=== PATIENT | female | born 1995 | race Caucasian/White ===

== ENCOUNTER → 2016-05-31 | Outpatient (CLI) | payer OTHER ==
[~2016-05-31] MED LIST: FRRS300 PO; [UNRECOGNIZED DRUG - CODE] PO
[2016-05-31 12:29] LABS: PREG INTERNAL NEGATIVE QC NEG CLEAR BACKGROUND; PREG INTERNAL POSITIVE QC POS CONTROL LINE
== END | disposition home or self-care (01) ==
LOC: C.LAB1850 11:23
PROVIDERS: ATTEND Obstetrics & Gynecology
DX: N64.52 Nipple discharge (principal)

== ENCOUNTER → 2016-07-11 | Outpatient (CLI) | payer OTHER | END | disposition home or self-care (01) | LOC: C.LABSPEC 17:23 | PROVIDERS: ATTEND Obstetrics & Gynecology | DX: N94.10 Unspecified dyspareunia (principal) ==

== ENCOUNTER → 2016-07-30 | Outpatient (CLI) | payer BC, OTHER ==
[2016-08-02 01:00] LABS: CHLAMYDIA TRACH RNA*** NOT DETECTED (NOT DETECTED); GC (NEIS GONORRHOEAE)RNA** NOT DETECTED (NOT DETECTED)
== END | disposition home or self-care (01) ==
LOC: C.LABSPEC 17:27
PROVIDERS: ATTEND Obstetrics & Gynecology
DX: N94.10 Unspecified dyspareunia (principal); L29.8 Other pruritus; N92.6 Irregular menstruation, unspecified; Z11.3 Encounter for screening for infections with a predominantly sexual mode of transmission

== ENCOUNTER → 2016-07-30 | Outpatient (CLI) | payer BC, OTHER ==
[2016-07-30 18:07] LABS: PREG INTERNAL NEGATIVE QC NEG CLEAR BACKGROUND; PREG INTERNAL POSITIVE QC POS CONTROL LINE
== END | disposition home or self-care (01) ==
LOC: C.LAB1850 16:27
PROVIDERS: ATTEND Obstetrics & Gynecology
DX: N94.10 Unspecified dyspareunia (principal)

== ENCOUNTER → 2016-08-29 | Outpatient (CLI) | payer BC | END | disposition home or self-care (01) | LOC: C.LABPBG 08:27 | PROVIDERS: ATTEND Obstetrics & Gynecology | DX: Z32.01 Encounter for pregnancy test, result positive (principal) ==

== ENCOUNTER → 2016-09-18 | Outpatient (CLI) | payer BC ==
[2016-09-18 16:38] LABS: URINE APPEARANCE CLEAR (CLEAR); URINE BILIRUBIN NEG (NEG); URINE COLOR YELLOW; URINE NITRITE NEG (NEG); URINE SPECIFIC GRAVITY 1.019 (1.000-1.030); UROBILINOGEN NEG (NEG)
[2016-09-18 16:44] LABS: MANUAL MICROSCOPIC REQUIRED? NO; REVIEW REQ? NO
== END | disposition home or self-care (01) ==
LOC: C.LABSPEC 16:22
PROVIDERS: ATTEND Obstetrics & Gynecology
DX: O34.219 Maternal care for unspecified type scar from previous cesarean delivery (principal)

== ENCOUNTER → 2016-09-23 | Outpatient (CLI) | payer BC ==
[2016-09-23 15:57] LABS: BASO % 0.2 %; BASO ABS # 0.02 K/uL (0-0.2); COMPLETE YES; EOS % 2.2 %; IG% 0.4 %; LYMPH % 27.5 %; LYMPH ABS # 2.46 K/uL (1.2-3.4); MEAN CELL VOLUME 81.1 fL (80-100); MEAN CORPUSCULAR HEMOGLOBIN 28.2 pg (25-34); MEAN CORPUSCULAR HGB CONC 34.8 g/dl (32-36); MEAN PLATELET VOLUME 10.8 fL (7.4-10.4); MONO % 7.4 %; NEUT % 62.3 %; PLATELET COUNT 220 K/uL (130-400); RED BLOOD COUNT 4.93 M/uL (4.2-5.4); WHITE BLOOD COUNT 8.94 K/uL (4.8-10.8)
[2016-09-23 16:36] LABS: THYROID STIMULATING HORMONE 1.62 uIu/ml (0.300-4.500)
== END ==
LOC: C.LAB1850 14:49
PROVIDERS: ATTEND Obstetrics & Gynecology
DX: O24.419 Gestational diabetes mellitus in pregnancy, unspecified control (principal); O99.281 Endocrine, nutritional and metabolic diseases complicating pregnancy, first trimester

== ENCOUNTER → 2016-09-23 | Outpatient (CLI) | payer BC ==
[2016-09-26 02:49] LABS: CHLAMYDIA TRACH RNA*** NOT DETECTED (NOT DETECTED); GC (NEIS GONORRHOEAE)RNA** NOT DETECTED (NOT DETECTED)
== END ==
LOC: C.LABSPEC 17:37
PROVIDERS: ATTEND Obstetrics & Gynecology
DX: O24.419 Gestational diabetes mellitus in pregnancy, unspecified control (principal)

== ENCOUNTER → 2016-10-21 | Outpatient (CLI) | payer BC, OTHER ==
[2016-10-21 16:22] LABS: THYROID STIMULATING HORMONE 0.431 uIu/ml (0.300-4.500)
== END | disposition home or self-care (01) ==
LOC: C.LAB1850 14:53
PROVIDERS: ATTEND Obstetrics & Gynecology
DX: O99.281 Endocrine, nutritional and metabolic diseases complicating pregnancy, first trimester (principal)

== ENCOUNTER → 2016-11-18 | Outpatient (CLI) | payer BC, OTHER ==
[2016-11-18 15:37] LABS: THYROID STIMULATING HORMONE 1.37 uIu/ml (0.300-4.500)
== END | disposition home or self-care (01) ==
LOC: C.LAB1850 14:15
PROVIDERS: ATTEND Obstetrics & Gynecology
DX: O99.281 Endocrine, nutritional and metabolic diseases complicating pregnancy, first trimester (principal)

== ENCOUNTER → 2017-01-16 | Outpatient (CLI) | payer BC, OTHER ==
[2017-01-16 13:55] LABS: THYROID STIMULATING HORMONE 1.39 uIu/ml (0.300-4.500)
== END ==
LOC: C.LAB1850 12:21
PROVIDERS: ATTEND Obstetrics & Gynecology
DX: O99.282 Endocrine, nutritional and metabolic diseases complicating pregnancy, second trimester (principal)

== ENCOUNTER 2017-02-16 19:26 | Emergency (ER) | payer BC, OTHER ==
[~2017-02-16] VITALS: Ht 152.4 cm; Wt 85.2 kg
[2017-02-16 19:47] VITALS: TEMP 36.8; Ht 152.4 cm; Wt 85.2 kg
[2017-02-16 21:01] VITALS: BP 117/65; PULSE 82; O2SAT 100
--- NOTE | 2017-02-16 23:50 | EMERGENCY ROOM VISIT NOTE ---
History Report prepared by Kerri: Yeimi Cerna Under the Supervision of: Dr. Jeffrey Daugherty M.D. First contact with patient: 20:21 Chief Complaint: ABDOMINAL PAIN Stated Complaint: VERY PAINFUL HERNIA(UMBILICAL) Nursing Triage Summary: Pt complains of pain to umbilicus. Pt has history of umbilical hernia. Pt is 29 week preg. Pt denies any vaginal discharge or bleeding. History of Present Illness The patient is a 21 year old female who presents to the Emergency Room with complaints of intermittent abdominal pain starting yesterday. The patient states that she is 29 weeks and has an umbilical hernia. She states that she has had this since her last . She reports that sometimes it becomes painful to touch. She states that it was worse with movement. She states that yesterday it was the worst it has ever been. She reports that she vomited from the pain. The patient reports that she called OB and they told her to come in. She states that the pain had passed at that time and decided not to. She states that it came back today and made her nauseous. She reports that she called OB again and they told her to come in. She states that the pain stopped and she almost didn't come in, but thought it was best to just get checked out. She notes that she was experiencing Baker Arshad yesterday but otherwise denies any contractions. The patient denies fever, vomiting, and constipation. She states that she had seen a surgeon in between these pregnancies who said they wouldn't operate on it because of her weight. The patient denies urinary symptoms and vaginal bleeding or discharge. She notes that she still feels the baby moving. She denies melena and hematochezia. She notes that she has been having normal bowel movements and has not been doing heavy lifting. Source of History: patient Onset: yesterday Position: abdomen Timing: intermittent Modifying Factors (Worsening): movement Associated Symptoms: + nausea, No fevers, No vomiting, No melena, No hematochezia, No urinary symptoms Note: The patient denies constipation and vaginal bleeding. Review of Systems See HPI for pertinent positives & negatives. A total of 10 systems reviewed and were otherwise negative. Past Medical & Surgical Medical Problems: (1) Delivery by section of full-term (2) Umbilical hernia Family History No pertinent family history Social History Smoking Status: Never Smoker Alcohol Use: none Drug Use: none Marital Status: Housing Status: lives with family Occupation Status: unemployed Current/Historical Medications Scheduled Ferrous Sulfate (Ferrous Sulfate), 325 MG PO BID Levothyroxine Sodium (Levo-T), 125 MCG PO QAM Allergies Coded Allergies: No Known Allergies (Unverified , 04/28/16) Physical Exam Vital Signs Date Time Temp Pulse Resp B/P (MAP) Pulse Ox O2 Delivery O2 Flow Rate FiO2 02/16/17 21:01 82 18 117/65 100 02/16/17 19:47 36.8 75 16 118/76 99 Room Air Physical Exam Constitutional: Vital signs reviewed. Eyes: Pupils are equal round reactive to light. Conjunctiva are noninjected. ENT: Pharynx is clear without erythema or exudate. Mucous membranes are moist. Neck supple without meningeal signs. Respiratory: Clear to auscultation bilaterally. Breath sounds are equal bilaterally. Cardiovascular: Regular rate and rhythm. No rubs or gallops. GI: Soft. Bowel sounds are present. Gravid abdomen consistent with dates. Easily reducible 1 cm umbilical hernia with minimal tenderness. Musculoskeletal: No peripheral edema. Integumentary: No cyanosis. Neurological: The patient is awake and alert. No focal deficits. Psychiatric: Normal affect. Medical Decision & Procedures ED Course 2029: The patient was evaluated in room B3B. A complete history and physical exam was performed. 2039: Upon reevaluation, the patient appeared to have improvement of her symptoms. I discussed tonight's findings with the patient. She verbalized agreement of the treatment plan. The patient was discharged home. Medical Decision This is a 21-year-old female who presents with an umbilical hernia. I did perform a limited focused review of portions of the patient's old chart on the electronic medical record. The patient has had no recent pertinent visits to this hospital. The patient is normotensive. I did evaluate the patient as noted above. The patient has been dealing with an umbilical hernia since her last . She has had 2 episodes of pain since yesterday but currently is pain-free. She does have some mild tenderness over the umbilicus where I do palpate a easily reducible hernia. She denies any other symptoms such as fever or rectal bleeding. She did have vomiting yesterday but that is resolved. She has had no vaginal discharge or contractions or loss of movements. heart rate here was normal. I did briefly mention her case to the on-call surgeon who recommended that she have the hernia repaired once she delivers her baby. The patient was discharged in good condition and will follow up with her doctor. She was given return instructions as outlined below. Medication Reconcilliation Current Medication List: was personally reviewed by me Blood Pressure Screening Patient's blood pressure: Normal blood pressure Blood pressure disposition: Did not require urgent referral Impression Primary Impression: Umbilical hernia Additional Impression: Third trimester Scribe Attestation The scribe's documentation has been prepared under my direct and personally reviewed by me in its entirety. I confirm that the note above accurately reflects all work, treatment, procedures, and medical decision making performed by me. Departure Information Dispostion Home / Self-Care Referrals No Doctor, Assigned (PCP) Forms HOME CARE DOCUMENTATION FORM, IMPORTANT VISIT INFORMATION Patient Instructions My [facility] Additional Instructions You have been examined and treated today on an emergency basis only. This is not a substitute for, or an effort to provide, complete comprehensive medical care. It is impossible to recognize and treat all injuries or illnesses in a single emergency department visit. It is therefore important that you follow up closely with your physician. Call as soon as possible for an appointment. Return for worsening symptoms or if you develop fever, vomiting, rectal bleeding , or any other concerning symptoms. Problem Qualifiers Primary Impression: Umbilical hernia Obstruction and gangrene presence: without obstruction or gangrene Qualified Codes: K42.9 - Umbilical hernia without obstruction or gangrene
== END 2017-02-16 21:02 | disposition home or self-care (01) ==
LOC: C.EDB 19:27
DX: O99.613 Diseases of the digestive system complicating pregnancy, third trimester (principal); K42.9 Umbilical hernia without obstruction or gangrene; Z3A.29 29 weeks gestation of pregnancy; Z79.899 Other long term (current) drug therapy

== ENCOUNTER → 2017-02-18 | Outpatient (CLI) | payer BC ==
[2017-02-18 18:50] LABS: MANUAL MICROSCOPIC REQUIRED? NO; REVIEW REQ? NO; URINE APPEARANCE CLOUDY (CLEAR); URINE BILIRUBIN NEG (NEG); URINE COLOR YELLOW; URINE EPITHELIAL CELL AUTO >30 /lpf (0-5); URINE NITRITE NEG (NEG); URINE PH 5.5 (4.5-7.5); URINE SPECIFIC GRAVITY 1.018 (1.000-1.030); UROBILINOGEN NEG (NEG)
== END | disposition home or self-care (01) ==
LOC: C.LABSPEC 17:53
PROVIDERS: ATTEND Obstetrics & Gynecology
DX: O24.410 Gestational diabetes mellitus in pregnancy, diet controlled (principal)

== ENCOUNTER 2017-03-23 11:01 | Outpatient (CLI) | payer BC ==
[2017-03-23] MEDS ORDERED: ACETAMINOPHEN 325 MG TAB PO PRN (12:00)
== END 2017-03-23 13:25 | disposition home or self-care (01) ==
LOC: C.OPB 11:01 → C.LD 11:01 → C.OPB 13:25
PROVIDERS: ATTEND Obstetrics & Gynecology
DX: O26.893 Other specified pregnancy related conditions, third trimester (principal); R10.9 Unspecified abdominal pain; Z3A.34 34 weeks gestation of pregnancy

== ENCOUNTER → 2017-04-11 | Outpatient (CLI) | payer BC | END | disposition home or self-care (01) | LOC: C.LABSPEC 16:56 | PROVIDERS: ATTEND Obstetrics & Gynecology | DX: Z34.83 Encounter for supervision of other normal pregnancy, third trimester (principal) ==

== ENCOUNTER 2017-04-21 11:09 | Outpatient (CLI) | payer BC | END 2017-04-21 11:55 | disposition home or self-care (01) | LOC: C.LD 11:09 → C.OPB 11:09 → EDSTATUS 04-28 07:30 | PROVIDERS: ATTEND Obstetrics & Gynecology | DX: O26.893 Other specified pregnancy related conditions, third trimester (principal); R10.9 Unspecified abdominal pain; O24.414 Gestational diabetes mellitus in pregnancy, insulin controlled; O99.283 Endocrine, nutritional and metabolic diseases complicating pregnancy, third trimester; E03.9 Hypothyroidism, unspecified; Z3A.38 38 weeks gestation of pregnancy ==

== ENCOUNTER 2017-04-28 05:28 | Inpatient (IN) | payer BC ==
[2017-04-25 11:15] VITALS: BMI 39.0
--- NOTE | 2017-04-25 11:33 | PAT Medication Instructions ---
Service Date Apr 25, 2017. Current Home Medication List Insulin Aspart (Novolog), 30 INJ TIDM Insulin Human Isophan/Regular (Novolin 70/30), 30 SC QPM Levothyroxine Sodium (Levo-T), 125 MCG PO QAM Multivit-Min W/Fe-Fa (), 1 TAB PO QPM Medication Instructions For Your Scheduled Surgery - Hold the following medications the morning of surgery: Insulin Aspart (Novolog), 30 INJ TIDM - Take the following medications the morning of surgery with a sip of water: Levothyroxine Sodium (Levo-T), 125 MCG PO QAM - Take the following medications as scheduled the night before surgery: Insulin Aspart (Novolog), 30 INJ TIDM Insulin Human Isophan/Regular (Novolin 70/30), 30 SC QPM Multivit-Min W/Fe-Fa (), 1 TAB PO QPM If you have any questions please call us at [phone] or [phone] or [phone]
[2017-04-25 12:31] LABS: HEMATOCRIT 38.5 % (37-47); MEAN CELL VOLUME 78.9 fL (80-100); MEAN CORPUSCULAR HEMOGLOBIN 26.4 pg (25-34); RED BLOOD COUNT 4.88 M/uL (4.2-5.4); WHITE BLOOD COUNT 13.76 K/uL (4.8-10.8)
[2017-04-25 12:52] LABS: MEAN CORPUSCULAR HGB CONC 33.5 g/dl (32-36); PLATELET COUNT 75 K/uL (130-400)
[2017-04-25 12:57] LABS: BASO % 0.4 %; BASO ABS # 0.06 K/uL (0-0.2); COMPLETE YES; EOS % 1.2 %; IG% 4.7 %; LARGE PLATELETS 1+; LYMPH % 13.3 %; LYMPH ABS # 1.83 K/uL (1.2-3.4); MONO % 7.8 %; NEUT % 72.6 %; PLT ESTIMATE DECREASED
[2017-04-25 13:01] LABS: BLOOD UREA NITROGEN 7 mg/dl (7-18); BUN/CREATININE RATIO 15.4 (10-20); CALCIUM 8.4 mg/dl (8.5-10.1); CARBON DIOXIDE 23 mmol/L (21-32); CHLORIDE 108 mmol/L (98-107); CREATININE 0.47 mg/dl (0.60-1.20); GLUCOSE 57 mg/dl (70-99); SODIUM 138 mmol/L (136-145)
--- NOTE | 2017-04-27 21:04 | HISTORY & PHYSICAL EXAMINATION ---
DATE OF ADMISSION: 04/28/2017 PREOPERATIVE DIAGNOSES: 1. Intrauterine at 39 and 2/7 weeks. 2. History of previous section x2 with desired repeat. HISTORY OF PRESENT ILLNESS: Nasrin is a 21-year-old white female, 4, para 2-0-1-2, with history of previous section x2, who presents for repeat section. Dating is based on an LMP consistent with a first trimester ultrasound. This has been complicated by hypothyroidism, for which she has been well managed on Synthroid and insulin-requiring gestational diabetes. Otherwise, she notes good movement and no other complications. 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 This was a 15-week demise and #2, in January 2015, she delivered at 39 and 4/7 weeks, a 7 pound 15 ounce baby, by delivery. This was complicated by gestational diabetes mellitus. Her third was November 2015 and she delivered a 6 pound 10 ounce baby by repeat section. This was also complicated by gestational diabetes. ALLERGIES: No known drug allergies. MEDICATIONS: Include insulin, vitamin and Synthroid. PAST MEDICAL HISTORY: Complicated by gestational diabetes, anxiety and depression for which she is on no medications, hypothyroidism, childhood asthma, which has resolved and chickenpox. She denies heart disease, heart murmur, kidney or liver problems. PAST SURGICAL HISTORY: Includes D&E and x2. SOCIAL HISTORY: The patient denies tobacco, alcohol or drug use. She lives with her spouse and 2 children. PHYSICAL EXAMINATION: GENERAL: This is a well-developed, well-nourished white female, in no acute distress. VITAL SIGNS: Blood pressure 122/80, weight 201.4 pounds. NECK: Supple without thyromegaly or lymphadenopathy. CHEST: Clear to auscultation bilaterally. CARDIOVASCULAR: Regular rate and rhythm without murmurs, gallops or rubs. BACK: Without costovertebral angle tenderness. ABDOMEN: Gravid, soft and nontender. EXTREMITIES: Benign. LABORATORY DATA: B positive, antibody negative, Pap normal, rubella immune, RPR nonreactive, hepatitis B negative, HIV negative, chlamydia and gonorrhea cultures negative, group B strep negative. Her last ultrasound on March 31 revealed an estimated weight of 57th percentile, AC of 87th percentile. NSTs have been reactive. ASSESSMENT: Nasrin is a 21-year-old white female, 2, para 2-0-1-2, at 39 and 2/7 weeks with a history of previous section x2. She presents for repeat section. She does not desire tubal sterilization. The risks of the procedure were discussed with the patient, including the risks of anesthesia, bleeding requiring transfusion, infection, poor wound healing, damage to surrounding structures, including bowel, bladder, vessels, nerves and ureters with need for further surgery, hospitalization or intervention. We discussed the other risks of any surgery, including heart attack, blood clot, stroke or . Discussed the small risk of injury to the baby. Consent was reviewed and signed. Surgery is planned for April 28.
[2017-04-28] VITALS (13 sets, daily range): BP systolic 98–108; BP diastolic 54–65; PULSE 85–92; TEMP 36.6–36.8; O2SAT 95–100; Ht 154.9 cm; Wt 91.4 kg
[~2017-04-28] VITALS: Ht 154.9 cm; Wt 91.4 kg
[~2017-04-28 05:28] MED LIST changes: -FRRS300 PO; +INSU70IN2 SC; +NVLG INJ; +PRENTAB65 PO
[2017-04-28] MEDS ORDERED: CITRIC ACID/SODIUM CITRATE 15 ML UDC PO SCH (06:00)
[2017-04-28] MEDS ORDERED: CEFAZOLIN IV 3,000 MG in SYRINGE 0 ML IV SCH (06:00)
[2017-04-28] MEDS: LACTATED RINGER'S 1000ML 1,000 ML IV SCH ×2 (06:04→06:40)
[2017-04-28 06:26] LABS: HEMATOCRIT 37.6 % (37-47); MEAN CELL VOLUME 78.5 fL (80-100); MEAN CORPUSCULAR HEMOGLOBIN 26.7 pg (25-34); RED BLOOD COUNT 4.79 M/uL (4.2-5.4)
[2017-04-28 06:49] LABS: BASO % 0.4 %; BASO ABS # 0.05 K/uL (0-0.2); COMPLETE YES; EOS % 1.6 %; LARGE PLATELETS 1+; LYMPH % 15.8 %; LYMPH ABS # 2.13 K/uL (1.2-3.4); MONO % 8.7 %; NEUT % 69.5 %; PLATELET COUNT 79 K/uL (130-400); PLT ESTIMATE DECREASED
--- NOTE | 2017-04-28 07:49 | History & Physical Bridge Note ---
H&P Re-Evaluation Bridge Note: I have examined the patient, reviewed the History & Physical and in the interval since the performance of the History & Physical I have noted the following changes of clinical significance: PATIENT HAS PLT COUNT OF 75K ON FRIDAY AND 79K TODAY. PLEASE SEE NOTE IN QS CHART FOR FULL EVALUATION AND COMMENTS.
[2017-04-28 07:56] LABS: ALT/SGPT 13 U/L (12-78); BLOOD UREA NITROGEN 7 mg/dl (7-18); BUN/CREATININE RATIO 14.4 (10-20); CARBON DIOXIDE 24 mmol/L (21-32); CHLORIDE 107 mmol/L (98-107); CREATININE 0.47 mg/dl (0.60-1.20); GLUCOSE 72 mg/dl (70-99); POTASSIUM 3.6 mmol/L (3.5-5.1); SODIUM 140 mmol/L (136-145)
[2017-04-28 07:59] LABS: ALB/GLOB RATIO 0.6 (0.9-2); ALKALINE PHOSPHATASE 215 U/L (45-117); AST/SGOT 11 U/L (15-37)
[2017-04-28 08:11] LABS: INR 0.9 (0.9-1.1); PARTIAL THROMBOPLASTIN RATIO 1.1; PROTHROMBIN TIME (PATIENT) 9.9 SECONDS (9.0-12.0)
[2017-04-28] MEDS ORDERED: MORPHINE SULFATE PF 2MG/2ML SYR ONE ×2 (08:14→08:16)
[2017-04-28] MEDS ORDERED: CARBOPROST TROMETHAMINE 250 MCG/ML AMP IM ONE (09:05)
[2017-04-28] MEDS ORDERED: EpHEDrine SULFATE INJ 50 MG/ML AMP ONE (09:19)
[2017-04-28] MEDS ORDERED: OXYTOCIN INJ 10 UNITS/ML VIAL ONE (09:19)
[2017-04-28] MEDS ORDERED: PHENYLEPHRINE HCL INJ 10 MG/ML VIAL ONE (09:19)
[2017-04-28] MEDS ORDERED: ONDANSETRON INJ 2 MG/ML 2 ML VIAL ONE (09:19)
[2017-04-28] MEDS ORDERED: SODIUM CHLORIDE 0.9% INJ 10 ML VIAL ONE (09:30)
[2017-04-28] MEDS ORDERED: LACTATED RINGER'S 1000ML 1,000 ML IV SCH (09:36)
[2017-04-28] MEDS ORDERED: OXYTOCIN INJ 20 UNITS in LACTATED RINGER'S 1000ML 1,000 ML IV SCH (09:36)
--- NOTE | 2017-04-28 09:40 | [facility] Post Operative Brief Note ---
Immediate Operative Summary Operative Date Apr 28, 2017. Pre-Operative Diagnosis 1. Intrauterine at 39 2/7 weeks. 2. Previous section, desires repeat. Post-Operative Diagnosis Same Procedure(s) Performed Repeat low transverse section. Surgeon Dr. Weaver Marketing Data Specialist Surgeon(s) Latricia Cotton, [place]NOR Estimated Blood Loss 600 Findings VIABLE MALE FETUS, CEPHALIC, APGARS 7/8, WT 7#3OZ, NL UTX/TUBES/OVS. Fluids (cc crystalloids) 1500CC Specimens A. Placenta - hold B. Cord Blood C. Arterial and venous cord blood gases Drains WORTHY Anesthesia SPINAL Complication(s) None Disposition L&D
[2017-04-28] MEDS ORDERED: DC PCA PRN (09:45)
[2017-04-28] MEDS ORDERED: DIPHTHERIA/TETANUS/PERTUSSIS 0.5 ML SYR/VIAL IM. ONE (09:45)
[2017-04-28] MEDS ORDERED: LANOLIN OINT EXT PRN ×2 (09:45)
[2017-04-28] MEDS ORDERED: LACTATED RINGER'S 1000ML 500 ML IV PRN (09:51)
[2017-04-28] MEDS ORDERED: NALOXONE HCL INJ 0.08 MG in SYRINGE 1.8 ML IV PRN (09:51)
[2017-04-28] MEDS ORDERED: NALOXONE HCL INJ 1 MG in SODIUM CHLORIDE 0.9% 1000ML 1,000 ML IV PRN (09:51)
[2017-04-28] MEDS ORDERED: SODIUM CHLORIDE 0.9% 1000ML 1,000 ML IV PRN (09:51)
[2017-04-28] MEDS ORDERED: MoRPHine SULFATE PF 1 MG/ML 10 ML AMP/VIAL EPI PRN (10:00)
[2017-04-28] MEDS ORDERED: ACETAMINOPHEN 1000 MG/100 ML IV IV ONE (10:00)
[2017-04-28] MEDS ORDERED: ONDANSETRON INJ 2 MG/ML 2 ML VIAL IV PRN (10:00)
[2017-04-28] MEDS ORDERED: NALOXONE HCL 0.4 MG/1 ML VIAL/CARP IV PRN (10:00)
[2017-04-28] MEDS ORDERED: DiphenhydrAMINE HCL 50 MG/ML VIAL IV PRN (10:00)
[2017-04-28] MEDS ORDERED: NO NARCOTICS OR SEDATIVES SCH (10:00)
[2017-04-28] MEDS ORDERED: EpHEDrine SULFATE INJ 50 MG/ML AMP IV PRN (10:00)
[2017-04-28] MEDS ORDERED: MoRPHine SULFATE 2 MG/ML CARP IV PRN (10:00)
[2017-04-28] MEDS ORDERED: PROMETHAZINE HCL INJ 25 MG in SODIUM CHLORIDE 0.9% 50ML 50 ML IV PRN (10:00)
[2017-04-28] MEDS ORDERED: NALBUPHINE HCL INJ 10 MG/ML AMP IV PRN (10:00)
[2017-04-28] MEDS ORDERED: MoRPHine SULFATE PF 1 MG/ML 10 ML AMP/VIAL ONE (10:21)
--- NOTE | 2017-04-28 10:34 | OPERATIVE REPORT ---
DATE OF OPERATION: 04/28/2017 PREOPERATIVE DIAGNOSES: 1. Intrauterine at 39-2/7 weeks. 2. History of previous section x2. 3. Gestational thrombocytopenia. POSTOPERATIVE DIAGNOSIS: Same. PROCEDURES: Repeat lower transverse section. SURGEON: Niecy Weaver MD. NURSE EMERGENCY: Latricia Merritt RN. ESTIMATED BLOOD LOSS: 600 mL. FLUIDS: 1500 mL. URINE OUTPUT: 125 mL of clear yellow urine drained from the bladder at the end of the procedure. ANESTHESIA: Spinal. INDICATIONS: The patient is a 4, para 2-0-1-2 with history of previous section x2 who presents for repeat section at 39-2/ weeks. She was discovered to have platelets of 79,000 on admission. She had no signs and symptoms of preeclampsia. All other labs were normal, so she received a diagnosis of gestational thrombocytopenia. FINDINGS: Viable male in cephalic presentation with Apgars of 7 and 8. Normal uterus, tubes, and ovaries were noted bilaterally. COMPLICATIONS: None. DRAINS: Torres. DISPOSITION: To recovery room in stable condition. DESCRIPTION OF PROCEDURE: The patient was taken to the operating room where she was identified verbally and by bracelet. She was seated on the operating table where a spinal anesthetic was placed. She was then placed in dorsal supine position with a leftward tilt. A Torres catheter was placed sterilely. She was prepped and draped in normal sterile fashion. Her anesthetic was tested and found to be adequate. A timeout was held identifying correct patient, procedure, positioning and preoperative antibiotics. A Pfannenstiel skin incision was made through the previous incision and taken down to the underlying layer of fascia with the knife. Bleeding was attended to with Bovie electrocautery. The fascia was incised in the midline with the knife and taken out laterally with scissors. The superior edge of the fascial incision was then grasped with Ian clamps, elevated, and the underlying layer of rectus muscle was taken off bluntly and with scissors. In a similar fashion, the inferior edge of the fascial incision was grasped, elevated and the underlying layer of rectus muscle was taken off bluntly and with scissors. Bleeding of the rectus muscle was attended to with Bovie electrocautery. The muscles were bluntly in the midline. The peritoneum was entered sharply and was taken superiorly and inferiorly with good visualization of the bladder. The incision was stretched, the bladder blade was placed. A bladder flap was created by grasping the vesicouterine peritoneum entering with scissors, taken out laterally with scissors and creating bluntly and sharply. The bladder blade was replaced. The hysterotomy incision was scored with a knife and it was entered with a snap. Clear fluid was noted. The incision was stretched with the bench machine operator's fingers. The bench machine operator's hand was placed gently into the uterus and the head was delivered through the hysterotomy incision using gentle fundal pressure. There was a loose nuchal cord x1 that was reduced. The nose and mouth were bulb suctioned and the rest of the was delivered without difficulty. There was immediate cry. Cord was clamped and cut. The was handed off to abdomen to the tie tape machine operator for drying and attention. Cord blood and segment were obtained. The placenta was manually extracted and cleared of all clot and debris with moistened laparotomy sponges. The hysterotomy incision was repaired in 2 layers, the first a running locked layer, the second an imbricating layer. Bleeding edges were attended to with [id number] sutures of 0 Vicryl. The posterior cul-de-sac was irrigated and cleared of all clot and debris. The hysterotomy incision was again inspected and found to be hemostatic. The uterus was re-interiorized. The incision was again inspected and found to be hemostatic. The muscles were reapproximated in the midline with interrupted sutures of 0 Vicryl. The fascia was reapproximated with 0 Vicryl meeting in the midline. The subcuticular tissue was copiously irrigated with warm normal saline and bleeding was attended to with Bovie electrocautery and the skin was then closed with subcuticular stitch of 4-0 Vicryl. All sponge, lap and needle counts were correct x2. The patient tolerated the procedure well and was taken to recovery room in stable condition. I attest to the content of the Intraoperative Record and any orders documented therein. Any exception s are noted below.
--- NOTE | 2017-04-28 11:23 | Anesthesiology Progress Note ---
Anesthesia Post Op Note Date & Time Apr 28, 2017 at 11:23 Vital Signs Vital Signs Past 12 Hours Date Time Temp Pulse Resp B/P (MAP) Pulse Ox O2 Delivery O2 Flow Rate FiO2 04/28/17 10:34 Room Air Notes Mental Status: alert / awake / arousable, participated in evaluation Pt Amnestic to Procedure: Yes Nausea / Vomiting: adequately controlled Pain: adequately controlled Airway Patency, RR, SpO2: stable & adequate BP & HR: stable & adequate Hydration State: stable & adequate Neuraxial Anesthesia: was administered, sensory block is resolving Anesthetic Complications: no major complications apparent
[2017-04-28] MEDS: SIMETHICONE 80 MG CHEW PO SCH ×3 (13:00→19:50)
[2017-04-28] MEDS ORDERED: NURSING VERBAL MED ORDER ONE ×2 (14:00→14:15)
[2017-04-28 14:13] LABS: MEAN CORPUSCULAR HGB CONC 33.4 g/dl (32-36)
[2017-04-28 14:20] LABS: MEAN CELL VOLUME 78.8 fL (80-100); MEAN CORPUSCULAR HEMOGLOBIN 26.3 pg (25-34); RED BLOOD COUNT 4.82 M/uL (4.2-5.4); WHITE BLOOD COUNT 12.93 K/uL (4.8-10.8)
[2017-04-28] MEDS ORDERED: DEXTROSE 50% 50 ML SYR IV ONE (14:45)
[2017-04-28 14:55] LABS: PLATELET COUNT 74 K/uL (130-400)
[2017-04-28 14:56] LABS: PLT ESTIMATE DECREASED
[2017-04-28] MEDS: D5W AND LACTATED RINGERS 1,000 ML IV SCH ×2 (15:22→22:03)
[2017-04-28 22:19] LABS: HEMATOCRIT 35.2 % (37-47); MEAN CELL VOLUME 78.9 fL (80-100); RED BLOOD COUNT 4.46 M/uL (4.2-5.4); WHITE BLOOD COUNT 13.03 K/uL (4.8-10.8)
[2017-04-28 22:47] LABS: PLATELET COUNT 78 K/uL (130-400)
[2017-04-29] MEDS ORDERED: DC INTRASPINAL MORPHINE ONE
[2017-04-29] MEDS ORDERED: DiphenhydrAMINE HCL 50 MG/ML VIAL IV PRN
[2017-04-29] MEDS ORDERED: MEPERIDINE HCL 50 MG/ML CARP IV PRN ×2
[2017-04-29 00:20] VITALS: BP 131/99; PULSE 104; TEMP 36.8; O2SAT 93
[2017-04-29] MEDS: OXYCODONE/ACETAMINOPHEN 5-325 TAB PO PRN ×5 (02:54→21:04)
[2017-04-29 03:45] VITALS: BP 110/62; PULSE 92; TEMP 37.1
[2017-04-29 06:31] LABS: MEAN CORPUSCULAR HGB CONC 33.8 g/dl (32-36)
[2017-04-29 06:40] LABS: HEMATOCRIT 35.8 % (37-47); MEAN CELL VOLUME 79.4 fL (80-100); MEAN CORPUSCULAR HEMOGLOBIN 26.8 pg (25-34); RED BLOOD COUNT 4.51 M/uL (4.2-5.4); WHITE BLOOD COUNT 12.51 K/uL (4.8-10.8)
[2017-04-29 07:03] LABS: PLATELET COUNT 80 K/uL (130-400)
[2017-04-29 07:06] LABS: BASO % 0.3 %; BASO ABS # 0.04 K/uL (0-0.2); COMPLETE YES; EOS % 1.4 %; IG% 2.4 %; LARGE PLATELETS 1+; LYMPH % 15.9 %; LYMPH ABS # 1.99 K/uL (1.2-3.4); MONO % 7.9 %; NEUT % 72.1 %; PLT ESTIMATE DECREASED
[2017-04-29 07:28] VITALS: BP 108/60; PULSE 90; TEMP 36.5
--- NOTE | 2017-04-29 07:48 | Anesthesiology Progress Note ---
Anesthesia Post Op Note Date & Time Apr 29, 2017 at 07:46 Vital Signs Pain Intensity: 6.0 Vital Signs Past 12 Hours Date Time Temp Pulse Resp B/P (MAP) Pulse Ox O2 Delivery O2 Flow Rate FiO2 04/29/17 07:28 36.5 90 20 108/60 (76) 04/29/17 03:45 37.1 92 18 110/62 (78) 04/29/17 00:20 93 Room Air 04/29/17 00:20 36.8 104 18 131/99 (110) 93 Room Air 04/28/17 23:25 18 95 04/28/17 22:25 18 100 04/28/17 21:25 18 100 04/28/17 20:25 16 99 Notes Mental Status: alert / awake / arousable, participated in evaluation Pt Amnestic to Procedure: Yes Nausea / Vomiting: adequately controlled Pain: adequately controlled Airway Patency, RR, SpO2: stable & adequate BP & HR: stable & adequate Hydration State: stable & adequate Anesthetic Complications: no major complications apparent pt stated she had some nausea after . pt is diabetic and reports that could have been from her blood sugar as well. stated she felt better shortly after was resting comfortably in bed with family and baby at BS.
--- NOTE | 2017-04-29 08:01 | Progress Note ---
Subjective Apr 29, 2017. Subjective conversation w/ patient, physical exam, lab review Ambulation: limited ambulation Voiding: haque catheter in place (just removed this am) Passing Gas: Yes Diet Tolerance: Regular Diet Lochia: Small Feeding Type: Breast Feeding Pain: controlled with po pain meds Objective Vital Signs Date Time Temp Pulse Resp B/P (MAP) Pulse Ox O2 Delivery O2 Flow Rate FiO2 04/29/17 07:28 36.5 90 20 108/60 (76) 04/29/17 03:45 37.1 92 18 110/62 (78) 04/29/17 00:20 93 Room Air 04/29/17 00:20 36.8 104 18 131/99 (110) 93 Room Air 04/28/17 23:25 18 95 04/28/17 22:25 18 100 04/28/17 21:25 18 100 04/28/17 20:25 16 99 04/28/17 19:25 18 100 04/28/17 19:00 36.8 87 18 98/54 (69) 100 Room Air 04/28/17 18:25 16 97 04/28/17 17:25 18 100 04/28/17 16:25 18 100 04/28/17 14:25 100 Room Air 04/28/17 14:25 18 100 04/28/17 14:25 36.8 89 18 105/65 (78) 100 Room Air 04/28/17 14:20 16 100 04/28/17 14:20 89 16 107/65 (79) 100 Room Air 04/28/17 13:25 92 18 107/61 (76) 100 Room Air 04/28/17 13:25 18 100 04/28/17 12:25 36.6 85 18 108/63 (78) 99 Room Air 04/28/17 12:25 18 99 04/28/17 12:25 Room Air 04/28/17 12:25 99 Room Air 04/28/17 10:34 Room Air Physical Exam General Appearance: WELL-APPEARING, WD/WN, NO APPARENT DISTRESS Abdomen: non tender, soft Fundus: Firm, Tender (appropriate for postop), Relation to Umbilicus Incision Description: Clean, Dry & Intact Extremities: non-tender, normal inspection, + pedal edema (trace) Laboratory Results Last 24 Hours Test 04/28/17 09:20 04/28/17 13:01 04/28/17 13:07 04/28/17 13:28 Bedside Glucose 148 mg/dl 61 mg/dl 61 mg/dl 148 mg/dl Test 04/28/17 13:41 04/28/17 14:04 04/28/17 14:29 04/28/17 15:28 Bedside Glucose 104 mg/dl 82 mg/dl 107 mg/dl White Blood Count 12.93 K/uL Red Blood Count 4.82 M/uL Hemoglobin 12.7 g/dL Hematocrit 38.0 % Mean Corpuscular Volume 78.8 fL Mean Corpuscular Hemoglobin 26.3 pg Mean Corpuscular Hemoglobin Concent 33.4 g/dl RDW Standard Deviation 46.9 fL RDW Coefficient of Variation 16.3 % Platelet Count 74 K/uL Platelet Estimate DECREASED Test 04/28/17 16:38 04/28/17 17:32 04/28/17 18:44 04/28/17 19:54 Bedside Glucose 76 mg/dl 120 mg/dl 103 mg/dl 107 mg/dl Test 04/28/17 22:02 04/29/17 00:30 04/29/17 03:56 04/29/17 06:11 White Blood Count 13.03 K/uL 12.51 K/uL Red Blood Count 4.46 M/uL 4.51 M/uL Hemoglobin 11.6 g/dL 12.1 g/dL Hematocrit 35.2 % 35.8 % Mean Corpuscular Volume 78.9 fL 79.4 fL Mean Corpuscular Hemoglobin 26.0 pg 26.8 pg Mean Corpuscular Hemoglobin Concent 33.0 g/dl 33.8 g/dl RDW Standard Deviation 46.7 fL 46.7 fL RDW Coefficient of Variation 16.3 % 16.2 % Platelet Count 78 K/uL 80 K/uL Bedside Glucose 135 mg/dl 124 mg/dl Neutrophils (%) (Auto) 72.1 % Lymphocytes (%) (Auto) 15.9 % Monocytes (%) (Auto) 7.9 % Eosinophils (%) (Auto) 1.4 % Basophils (%) (Auto) 0.3 % Neutrophils # (Auto) 9.02 K/uL Lymphocytes # (Auto) 1.99 K/uL Monocytes # (Auto) 0.99 K/uL Eosinophils # (Auto) 0.17 K/uL Basophils # (Auto) 0.04 K/uL Immature Granulocyte % (Auto) 2.4 % Immature Granulocyte # (Auto) 0.30 K/uL Platelet Estimate DECREASED Large Platelets 1+ Assessment and Plan Problem List Medical Problems: (1) Bumps on skin Status: Acute (2) Rib pain on right side Status: Acute Post-, Post-Op Day#: 1 Continue Routine Care: Doing well. Plts are stable and 80k this am. Routine postop day 1--ambulate, adat, void.
[2017-04-29] MEDS: SIMETHICONE 80 MG CHEW PO SCH ×3 (08:32→19:36)
[2017-04-29] MEDS: PRENATAL VITAMIN TAB PO SCH (08:32)
[2017-04-29] MEDS: LEVOTHYROXINE 125 MCG TAB PO SCH (10:21)
[2017-04-29] MEDS: IBUPROFEN 600 MG TAB PO PRN ×3 (11:09→21:03)
[2017-04-29 12:00] VITALS: BP 121/64; PULSE 93; TEMP 36.6
[2017-04-29 15:40] VITALS: BP 113/66; PULSE 75; TEMP 36.7
[2017-04-29 23:00] VITALS: BP 120/71; PULSE 85; TEMP 36.8; O2SAT 97
[2017-04-30] MEDS: IBUPROFEN 600 MG TAB PO PRN ×3 (02:23→14:29)
[2017-04-30] MEDS: OXYCODONE/ACETAMINOPHEN 5-325 TAB PO PRN ×3 (02:23→14:29)
[2017-04-30] MEDS: LEVOTHYROXINE 125 MCG TAB PO SCH (06:09)
[2017-04-30 06:11] LABS: MEAN CORPUSCULAR HGB CONC 33.2 g/dl (32-36)
[2017-04-30 06:35] LABS: HEMATOCRIT 36.8 % (37-47); MEAN CELL VOLUME 79.7 fL (80-100); MEAN CORPUSCULAR HEMOGLOBIN 26.4 pg (25-34); RED BLOOD COUNT 4.62 M/uL (4.2-5.4); WHITE BLOOD COUNT 9.45 K/uL (4.8-10.8)
[2017-04-30 06:37] LABS: PLATELET COUNT 83 K/uL (130-400)
[2017-04-30 06:38] LABS: PLT ESTIMATE DECREASED
--- NOTE | 2017-04-30 07:12 | Progress Note ---
Subjective Apr 30, 2017. Subjective conversation w/ patient, physical exam Ambulation: ambulating normally Voiding: no voiding problems, haque catheter in place (just removed this am) Passing Gas: Yes Diet Tolerance: Regular Diet Lochia: Small Review of Systems Constitutional: No fever, No chills, No sweats, No weight loss, No weakness, No fatigue, No problem reported Abdomen: No pain, No nausea, No vomiting, No diarrhea, No constipation, No GI bleeding, No problem reported Female : No see HPI, No dysuria, No urinary frequency, No hematuria, No incontinence, No abnormal vaginal bleeding, No vaginal discharge, No problem reported Objective Vital Signs Date Time Temp Pulse Resp B/P (MAP) Pulse Ox O2 Delivery O2 Flow Rate FiO2 04/29/17 23:00 Room Air 04/29/17 23:00 36.8 85 16 120/71 (87) 97 Room Air 04/29/17 15:40 Room Air 04/29/17 15:40 36.7 75 16 113/66 (82) Room Air 04/29/17 12:00 36.6 93 18 121/64 (83) 04/29/17 08:50 Room Air 04/29/17 07:28 36.5 90 20 108/60 (76) Physical Exam General Appearance: WELL-APPEARING, NO APPARENT DISTRESS Abdomen: non tender, soft Fundus: Firm, Non-Tender, Relation to Umbilicus (1 below U) Incision Description: Clean, Dry & Intact Extremities: no calf tenderness Laboratory Results Last 24 Hours Test 04/30/17 05:49 White Blood Count 9.45 K/uL Red Blood Count 4.62 M/uL Hemoglobin 12.2 g/dL Hematocrit 36.8 % Mean Corpuscular Volume 79.7 fL Mean Corpuscular Hemoglobin 26.4 pg Mean Corpuscular Hemoglobin Concent 33.2 g/dl RDW Standard Deviation 47.3 fL RDW Coefficient of Variation 16.4 % Platelet Count 83 K/uL Platelet Estimate DECREASED Assessment and Plan Problem List Medical Problems: (1) Bumps on skin Status: Acute (2) Rib pain on right side Status: Acute Post-, Post-Op Day#: 2 Continue Routine Care: satisfactory post-op course wishes to go home rx's for percocet & motrin given to patient
[2017-04-30] MEDS ORDERED: OXYC-57 PO (07:14)
[2017-04-30] MEDS ORDERED: MTR600X PO (07:14)
--- NOTE | 2017-04-30 07:15 | Discharge Instructions ---
Discharge Instructions Date of Service Apr 30, 2017. Admission Reason for Admission: Previous Section Discharge Discharge Diagnosis / Problem: recovery form Discharge Goals Goal(s): Routine recovery after Activity Recommendations Activity Limitations: per Instructions/Follow-up section . Instructions / Follow-Up Instructions / Follow-Up ACTIVITY RECOMMENDATIONS: * Gradual return to full activity over the next 2-3 weeks. * No lifting - nothing heavier than baby over the next 2-3 weeks. * Do not engage in vigorous exercise, sexual activity or sports until cleared by your physician. * Do not drive or operate any motorized equipment until cleared by your physician. * You may shower/bathe daily. MEDICATIONS: For discomfort or pain, you may use Acetaminophen (Tylenol), Ibuprofen (Advil), or Naproxen (Aleve) following the package directions. For constipation you may use Colace following the package directions. BREAST CARE: If you are not breast feeding: * Wear a supportive bra 24 hours a day for one to two weeks. * Avoid stimulating your breasts and nipples as much as possible during the first few weeks after delivery. * When taking a shower, have the warm water hit your back, not breasts. * When your breasts feel full, apply ice packs. Usually three to four times a day helps ease the discomfort. * Take a mild pain medication (Tylenol / Motrin) when you are uncomfortable. If breast feeding: * Use breast milk to lubricate nipples. Lansinoh cream may be used for sore nipples. You do not need to remove cream prior to breast feeding. If using a different brand of cream, check the label for directions regarding removal of cream prior to nursing. * Wear a supportive bra. * If having problems with breasts or breast feeding, call a clinical consultant or your health care provider. EPISIOTOMY CARE: After delivery, if you have an episiotomy (stitches), the following steps will ease discomfort and aid healing. * For the first 24 hours after delivery, place ice packs next to your episiotomy to help reduce swelling. * After the first 24 hour-period, sitz baths, either portable or in the tub, are suggested. A shower with a shower arm sprayed over the episiotomy may be comforting. * Karly care should be done after each voiding and bowel movement. Squirt warm water from a plastic bottle over the perineum (region of the body between the anus and urinary opening) and pat dry. * Use Dermoplast to ease discomfort. Shake container. [place] directly over the episiotomy. Place a Tucks on a clean sanitary pad next to your episiotomy. SPECIAL CARE INSTRUCTIONS: When you are discharged from the hospital, it is important for you to follow the instructions listed below: * During the first week at home, you should be able to care for yourself and your baby. In addition, the usual light household activities are encouraged. * Limit your activities to the way you feel. Do not try to clean the house or move furniture. Be sensible. * If you actively engage in sports and have done so up until the time of your delivery, you may resume these activities as soon as you feel able. This may take up to one month or even longer. Use good judgment. * Continue to take your vitamins for at least six weeks after the of your baby. * Your diet need not be limited unless you were on a special diet before your delivery. Breast-feeding mothers need around 2500 calories per day and at least 64-80 ounces of fluid per day (8 to 10 glasses). * You should eat foods from the four major food groups. Crash diets or fad diets are to be avoided. Eating lean meats, fresh fruits and vegetables, low-fat dairy products, high fiber foods and a regular exercise program, will help you get back to your pre- weight without putting your health at risk. * Constipation is sometimes a problem after delivery. Take a mild laxative as needed. If breast feeding, Milk of Magnesia is acceptable to use. You may use a suppository or Fleets enema if no episiotomy. * A daily shower or tub bath is suggested. Be sure to thoroughly and gently dry the perineum. * A bloody vaginal discharge will usually continue until around four weeks post . A small amount of bleeding may continue for as long as six weeks. Vaginal discharge changes from the bright red bleeding after delivery to pink then brownish and finally yellowish-pink before becoming white and disappearing. * Bleeding may increase with activity. Your first period may come in 4-8 weeks. If you are breast feeding, your period may be delayed even longer. * [place] (sex) can begin whenever both you and your partner feel comfortable and do not have any form of genital infection. It is recommended that you wait at least six weeks for internal and external healing to occur. If you have questions, please talk to your health care practitioner. A condom should be used to prevent infection and . * Foreplay, gentle intercourse and lubrication is very important the first several times to prevent pain. A water-based lubricant such as K-Y jelly or Astroglide may be used. * If you have RH negative blood and your baby is RH positive, you will receive RHOGAM by injection prior to discharge. The nurse will give you a card to keep with you that has the date and place that you received RHOGAM after delivery. * During your care, you had a Rubella screen done to check for the presence of rubella antibodies in your blood. If your test was negative, you will receive a Rubella vaccine prior to discharge. This vaccine may cause a fever, soreness at the injection site and flu-like symptoms. If these symptoms persist, notify your health care practitioner. is not advised for one month after a Rubella vaccine. * Verbalizes understanding of car seat law as reviewed with patient nursing. * Car Seat hand-out given and reviewed with patient by nursing. * Shaken baby information reviewed with patient by nursing. Call you doctor if: * Heavy bleeding (saturating several pads an hour) or passing clots the size of your fist. * A fever >101 degrees F (38.3 degrees C) on two occasions four hours apart and /or chills. * Unusual pain in the pelvic or vaginal areas. * "Baby Blues" lasting longer than two weeks. If you have any questions or concerns, call your health care practitioner at . FOLLOW UP VISIT: * Please call the office at to schedule a 6 week examination. It is important you keep this appointment. It is important for you to make arrangements for either yearly or twice yearly check-ups thereafter. Current Hospital Diet Patient's current hospital diet: Regular OB Diet Discharge Diet Recommended Diet: Regular OB Diet Procedures Procedures Performed: Repeat low transverse section. Pending Studies Studies pending at discharge: no Medical Emergencies . Who to Call and When: Medical Emergencies: If at any time you feel your situation is an emergency, please call 911 immediately. . Non-Emergent Contact Non-Emergency issues call your: Non Destructive Testing Technician . . "Provider Documentation" section prepared by Magda Griffin. . VTE Core Measure Inpt VTE Proph given/why not?: Treatment not indicated
[2017-04-30 07:23] VITALS: BP 120/75; PULSE 84; TEMP 36.4; O2SAT 98
[2017-04-30] MEDS ORDERED: LEVOTHYROXINE 125 MCG TAB PO SCH (07:30)
[2017-04-30] MEDS: SIMETHICONE 80 MG CHEW PO SCH ×2 (08:12→12:06)
[2017-04-30] MEDS: PRENATAL VITAMIN TAB PO SCH (08:12)
[2017-04-30 14:00] VITALS: BP_DIAS 75; PULSE 84; TEMP 36.4
== END 2017-04-30 15:45 | disposition home or self-care (01) | DRG 765 ==
LOC: C.LD 05:28 → C.OBG 12:51
PROVIDERS: ADMIT Obstetrics & Gynecology; ATTEND Obstetrics & Gynecology
PROC: 10D00Z1 Extraction of Products of Conception, Low, Open Approach (ICD-10-PCS; principal; 2017-04-28 07:30)
DX: O24.424 Gestational diabetes mellitus in childbirth, insulin controlled (principal); O99.12 Other diseases of the blood and blood-forming organs and certain disorders involving the immune mechanism complicating childbirth; D69.6 Thrombocytopenia, unspecified; O99.284 Endocrine, nutritional and metabolic diseases complicating childbirth; E03.9 Hypothyroidism, unspecified; O69.81X0 Labor and delivery complicated by cord around neck, without compression, not applicable or unspecified; Z3A.39 39 weeks gestation of pregnancy; Z37.0 Single live birth

== ENCOUNTER → 2017-05-31 | Outpatient (CLI) | payer BC ==
[~2017-05-31] MED LIST changes: -INSU70IN2 SC; +MTR600X PO; -NVLG INJ; +OXYC-57 PO
== END | disposition home or self-care (01) ==
LOC: C.LAB1850 10:09
PROVIDERS: ATTEND Internal Medicine Endocrinology, Diabetes & Metabolism
DX: O99.282 Endocrine, nutritional and metabolic diseases complicating pregnancy, second trimester (principal)

== ENCOUNTER 2021-11-20 19:13 | Inpatient (IN) ==
[2021-11-20] MEDS ORDERED: LACTATED RINGER'S 1,000 ML IV ONE (20:21)
[2021-11-20] MEDS ORDERED: LACTATED RINGER'S 1,000 ML IV PRN (20:21)
[2021-11-20] MEDS ORDERED: ACETAMINOPHEN 500 MG TAB PO ONE (23:48)
--- NOTE | 2021-11-21 01:55 | Labor Progress Brief Note ---
Date of Service November 21, 2021 Assessment & Plan (1) H/O section: Plan: Hx of c/sec x 4 at 36+ weeks Pt having ctx Ctx are unbearable. pt ranks ctx at 01/19 will proceed to c/sec Results & Data ([facility] [place]) Vital Signs (Past 12 Hours) Vital Signs Temp Pulse Resp BP Pulse Ox 11/20/21 23:10 36.9 C 95 H 20 111/60 11/20/21 20:14 105 H 97 11/20/21 20:09 100 H 98 11/20/21 20:04 104 H 97 11/20/21 19:59 95 H 99 11/20/21 19:54 88 99 11/20/21 19:49 110 H 99 11/20/21 19:34 36.9 C 93 H 20 114/66 11/20/21 19:25 93 H 114/66 11/20/21 19:22 36.9 C 20
[2021-11-21] MEDS ORDERED: MoRPHine SULFATE PF 1 MG/ML 10 ML AMP/VIAL ONE (02:39)
[2021-11-21] MEDS ORDERED: LACTATED RINGER'S 1,000 ML IV SCH (03:00)
[2021-11-21] MEDS ORDERED: METHYLERGONOVINE MALEATE 0.2 MG/ML AMP ONE (03:25)
[2021-11-21] MEDS ORDERED: OXYTOCIN 10 UNITS/ML 10ML VIAL ONE (03:28)
[2021-11-21] MEDS ORDERED: PHENYLEPHRINE 100MCG/ML 5ML SYR ONE (03:28)
[2021-11-21] MEDS ORDERED: fentaNYL citrate 100 MCG/2 ML VIAL ONE (03:42)
[2021-11-21] MEDS ORDERED: ONDANSETRON INJ 2 MG/ML 2 ML VIAL ONE (04:06)
[2021-11-21] MEDS ORDERED: ONDANSETRON INJ 2 MG/ML 2 ML VIAL IV PRN ×2 (05:20→06:01)
[2021-11-21] MEDS ORDERED: MAGNESIUM HYDROXIDE SUSP 30 ML UDC PO PRN (05:20)
[2021-11-21] MEDS ORDERED: DIPHTHERIA/TETANUS/PERTUSSIS 0.5 ML SYR/VIAL IM ONE (05:20)
[2021-11-21] MEDS ORDERED: PROMETHAZINE HCL 25 MG in SODIUM CHLORIDE 0.9% 50 ML IV PRN ×2 (05:20→06:01)
[2021-11-21] MEDS ORDERED: BENZOCAINE 20% AER SPR 82.5 GM CAN EXT PRN (05:20)
[2021-11-21] MEDS ORDERED: HYDROCORTISONE ACETATE 25 MG SUPP PR PRN (05:20)
[2021-11-21] MEDS ORDERED: diphenhydrAMINE 50 MG/ML VIAL IV PRN ×3 (05:20→06:01)
[2021-11-21] MEDS ORDERED: diphenhydrAMINE Capsule 25 MG CAP PO PRN ×2 (05:20→06:01)
[2021-11-21] MEDS ORDERED: SENNA 8.6 MG TAB PO PRN (05:20)
--- NOTE | 2021-11-21 05:39 | Anesthesiology Progress Note ---
Date of Service November 21, 2021 Anesthesia Post Procedure Vital Signs Vital Signs: Temp Pulse Resp BP Pulse Ox 11/21/21 05:37 107 H 94 11/21/21 05:35 100 H 97 11/21/21 05:30 97 H 95 11/21/21 05:31 101 H 92 11/21/21 05:25 103 H 96 11/21/21 05:20 97 H 98 11/21/21 05:17 106 H 126/66 11/21/21 05:15 113 H 96 11/21/21 05:10 106 H 99 11/21/21 05:07 97 H 120/70 11/21/21 05:05 97 H 97 11/21/21 05:00 96 H 96 11/21/21 04:57 94 H 114/68 11/21/21 04:55 95 H 100 11/21/21 04:50 84 98 11/21/21 04:47 91 H 116/51 L 11/21/21 04:45 82 98 11/21/21 04:40 90 99 11/21/21 04:41 92 H 116/56 L 11/21/21 04:36 89 118/60 11/21/21 04:35 82 97 11/21/21 04:33 83 94 11/21/21 04:31 84 90/70 L 11/21/21 04:30 89 97 11/21/21 04:25 92 H 93 11/21/21 04:26 86 120/56 L 11/21/21 04:20 92 H 97 11/21/21 04:15 91 H 122/56 L 94 11/20/21 19:34 36.9 C 93 H 20 114/66 11/20/21 23:10 20 11/20/21 23:10 36.9 C 20 11/20/21 23:10 95 H 11/20/21 23:10 111/60 11/20/21 20:14 97 11/20/21 20:14 105 H 11/20/21 20:09 98 11/20/21 20:09 100 H 11/20/21 20:04 97 11/20/21 20:04 104 H 11/20/21 19:59 99 11/20/21 19:59 95 H 11/20/21 19:59 91 11/20/21 19:59 97 H 11/20/21 19:54 99 11/20/21 19:54 88 11/20/21 19:49 99 11/20/21 19:49 110 H 11/20/21 19:22 20 11/20/21 19:22 36.9 C 20 11/20/21 19:25 93 H 114/66 Transfer of Care Handoff Completed per policy Notes Mental Status: alert / awake / arousable and participated in evaluation Nausea / Vomiting: adequately controlled Pain: adequately controlled Airway Patency, RR, SpO2: stable & adequate BP & HR: stable & adequate Hydration State: stable & adequate Neuraxial Anesthesia: was administered and sensory block is resolving Anesthetic Complications: no major complications apparent and Pt Satisfied with anesthetic care
[2021-11-21 05:42] LABS: Anisocytosis Present; Basophils # (auto) 0.09 K/uL (0-0.2); Basophils % (auto) 0.9 %; Eosinophils # (auto) 0.19 K/uL (0-0.50); Eosinophils % (auto) 1.8 %; Hematocrit (blood only) 35.5 % (34.1-44.9); Hemoglobin 11.6 g/dl (12.0-16.0); Immature Granulocytes # (auto) 0.59 K/uL (0.00-0.02); Immature Granulocytes % (auto) 5.7 %; Lymphocytes # (auto) 2.15 K/uL (1.2-3.4); Lymphocytes % (auto) 20.6 %; Mean Corpuscular Hemoglobin 25.3 pg (25.0-34.0); Mean Corpuscular Hgb Conc 32.7 g/dL (32.0-36.0); Mean Corpuscular Volume 77.3 fL (80.0-100.0); Mean Platelet Volume 10.8 fL (9.4-12.3); Monocytes # (auto) 0.73 K/uL (0.24-0.82); Neutrophils # (auto) 6.69 K/uL (1.4-6.5); Platelet Count 142 K/uL (130-400); Polychromasia 1+; RDW Coefficient of Variation 21.2 % (11.5-14.5); RDW Standard Deviation 57.3 fL (36.4-46.3); Red Blood Count 4.59 M/uL (3.93-5.22); Rouleaux 1+; White Blood Count 10.44 K/ul (4.8-10.8)
[2021-11-21] MEDS ORDERED: CITRIC ACID/SODIUM CITRATE 15 ML UDC PO SCH (06:00)
[2021-11-21] MEDS ORDERED: cefOXitin 2,000 MG in DEXTROSE 5% 50 ML IV SCH (06:00)
[2021-11-21] MEDS ORDERED: MoRPHine SULFATE PF 1 MG/ML 10 ML AMP/VIAL INT SPINAL ONE (06:01)
[2021-11-21] MEDS ORDERED: NALOXONE HCL 0.08 MG in SYRINGE 1.8 ML IV PRN (06:01)
[2021-11-21] MEDS ORDERED: METOCLOPRAMIDE HCL 20 MG in SODIUM CHLORIDE 0.9% 50 ML IV PRN (06:01)
[2021-11-21] MEDS ORDERED: ePHEDrine sulfate 50 MG/ML AMP IV PRN (06:01)
[2021-11-21] MEDS ORDERED: LACTATED RINGER'S 500 ML IV PRN (06:01)
[2021-11-21] MEDS ORDERED: NALOXONE HCL 1 MG in SODIUM CHLORIDE 0.9% 1000ML 1,000 ML IV PRN (06:01)
[2021-11-21] MEDS ORDERED: HYDROmorphone INJ 0.5 MG/0.5 ML SYR IV PRN (06:01)
[2021-11-21] MEDS ORDERED: SODIUM CHLORIDE 0.9% 1000ML 1,000 ML IV SCH (06:15)
[2021-11-21] MEDS ORDERED: DC INTRASPINAL MORPHINE SCH (06:15)
[2021-11-21] MEDS ORDERED: NO NARCOTICS OR SEDATIVES SCH (06:15)
[2021-11-21] MEDS: OXYTOCIN 20 UNITS in LACTATED RINGER'S 1,000 ML IV SCH ×2 (06:23→14:55)
[2021-11-21] MEDS ORDERED: OXYTOCIN 10 UNITS/ML 10ML VIAL IM ONE (06:45)
[2021-11-21] MEDS: DOCUSATE SODIUM 100 MG CAP PO SCH ×2 (08:00→20:29)
[2021-11-21] MEDS: SIMETHICONE 80 MG CHEW PO SCH ×4 (08:00→20:29)
[2021-11-21] MEDS: PRENATAL VITAMIN 1 TAB PO SCH (08:00)
[2021-11-21] MEDS: FERROUS SULFATE 325 MG TAB PO SCH (08:00)
--- NOTE | 2021-11-21 10:05 | Operative Report (OR) ---
DATE OF PROCEDURE: 11/21/2021. INDICATION FOR SURGERY: This is a 25-year-old with prior sections presently , presented to labor and delivery with contractions. Decision was therefore made to perform a repeat . PREOPERATIVE DIAGNOSES: 1. Prior section x4. 2. Presently . 3. Requires repeat . POSTOPERATIVE DIAGNOSES: 1. Prior section x4. 2. Presently . 3. Requires repeat . PROCEDURE: Repeat section. SURGEON: Armand Pina MD. COUNSELING SERVICES DIRECTOR: Jeremias Pedersen MD. ANESTHESIA: Spinal. Dr. Olson is attending. DRAINS: None. ESTIMATED BLOOD LOSS: 600 mL. INTRAVENOUS FLUIDS: 2 liters. URINE OUTPUT: 700 mL. SPECIMENS: Placenta. INTRAOPERATIVE COMPLICATIONS: None. CONDITION: Stable. DISPOSITION: Postanesthesia care unit. FINDINGS: Live infant in cephalic presentation. Uterus and tubes are normal. No significant adhesions in the abdomen or pelvis. DESCRIPTION OF PROCEDURE: The patient was taken to the operating room where she was prepped and draped in normal sterile fashion in dorsal lithotomy position. A Pfannenstiel incision was made through the old scar, carried down to the fascia with a scalpel. Fascia was incised in the midline and extended laterally on both sides. The fascia was dissected off the superior and inferior rectus abdominis muscle. Peritoneum was identified and entered sharply. Once inside the abdomen, an Johnny retractor was placed for retraction. Vesicouterine peritoneum was dissected over the lower segment of the uterus and a low transverse incision was made on the uterus, extended laterally on both sides. Infant's head was delivered. There was a nuchal cord, which was easily reduced. Infant was placed on mother's abdomen. Delayed cord clamp was performed. was handed over to the waiting pediatric team. Placenta was manually removed. Uterus was exteriorized and cleared of all clots and debris. Findings of the procedure as dictated above. Both adnexa appeared grossly normal. There were no significant adhesions. Uterus was closed in 2 layers with Vicryl. There was good hemostasis. Copious amount of irrigation used to irrigate the abdomen. Uterus was returned into the abdominal cavity. Peritoneum was closed with plain suture. Fascia was placed in a running fashion with Vicryl. Subcutaneous space was irrigated and closed with a plain suture. Skin was closed with sindy. All instruments were removed from the abdomen including retractors, sponges and needles were accounted for x2. The patient is sent to recovery in stable condition. Job ID: [id number] [facility]
[2021-11-21] MEDS ORDERED: KETOROLAC 30 MG/ML VIAL IV ONE ×2 (10:49→19:20)
[2021-11-22] MEDS: oxyCODONE/ACETAMINOPHEN 5mg/325mg TAB PO PRN ×6 (00:31→21:32)
[2021-11-22] MEDS: IBUPROFEN 600 MG TAB PO PRN ×5 (04:28→21:31)
[2021-11-22 07:09] LABS: Basophils # (auto) 0.09 K/uL (0-0.2); Basophils % (auto) 0.8 %; Eosinophils # (auto) 0.12 K/uL (0-0.50); Hematocrit (blood only) 36.4 % (34.1-44.9); Hemoglobin 11.9 g/dl (12.0-16.0); Immature Granulocytes % (auto) 2.5 %; Lymphocytes # (auto) 1.51 K/uL (1.2-3.4); Lymphocytes % (auto) 12.6 %; Mean Corpuscular Hemoglobin 25.3 pg (25.0-34.0); Mean Corpuscular Hgb Conc 32.7 g/dL (32.0-36.0); Mean Corpuscular Volume 77.3 fL (80.0-100.0); Monocytes # (auto) 1.29 K/uL (0.24-0.82); Monocytes % (auto) 10.8 %; Neutrophils # (auto) 8.65 K/uL (1.4-6.5); Neutrophils % (auto) 72.3 %; Platelet Count 148 K/uL (130-400); RDW Coefficient of Variation 21.3 % (11.5-14.5); Red Blood Count 4.71 M/uL (3.93-5.22); White Blood Count 11.96 K/ul (4.8-10.8)
[2021-11-22 07:41] LABS: Anisocytosis Present; Tear Drop Cells 1+
[2021-11-22] MEDS: SIMETHICONE 80 MG CHEW PO SCH ×4 (08:55→21:31)
[2021-11-22] MEDS: DOCUSATE SODIUM 100 MG CAP PO SCH ×2 (08:55→21:31)
[2021-11-22] MEDS: PRENATAL VITAMIN 1 TAB PO SCH (08:55)
[2021-11-22] MEDS: FERROUS SULFATE 325 MG TAB PO SCH (08:55)
--- NOTE | 2021-11-22 11:43 | Obstetrical Progress Note ---
Date of Service November 22, 2021 Subjective Ambulation: ambulating normally Voiding: no voiding problems Passing Gas:: Yes Diet Tolerance:: regular diet Feeding Type:: breast feeding Current Pain Level(1-10): 3 doing well. has been out of bed and experiencing some incisional and abdominal pain Physical Exam Constitutional WD/WN, vitals as above Gastrointestinal (Abdomen) normal bowel sounds, soft, nontender, no hepatosplenomegaly Musculoskeletal no edema. neg Ying's Skin no rashes, warm and dry Neurologic patellar DTR's 2+ bilat, sensation intact Results & Data ([place]) Vital Signs (Past 12 Hours) Vital Signs Temp Pulse Pulse Resp BP Pulse Ox O2 Del Method 11/22/21 08:50 37 C 92 H 18 115/72 99 Room Air 11/22/21 04:25 36.5 C 85 18 105/70 96 Room Air 11/22/21 00:05 37.0 C 80 16 109/71 93 Room Air Laboratory Results Laboratory Results - last 48 hr 11/20/21 11/21/21 11/21/21 20:35 02:14 02:14 WBC 10.44 RBC 4.59 Hgb 11.6 L Hct 35.5 MCV 77.3 L MCH 25.3 MCHC 32.7 RDW Std Deviation 57.3 H RDW Coeff of Noni 21.2 H Plt Count 142 MPV 10.8 Immature Gran % (Auto) 5.7 Neut % (Auto) 64.0 Lymph % (Auto) 20.6 Leake % (Auto) 7.0 Eos % (Auto) 1.8 Baso % (Auto) 0.9 Neut # (Auto) 6.69 H Lymph # (Auto) 2.15 Leake # (Auto) 0.73 Eos # (Auto) 0.19 Baso # (Auto) 0.09 Immature Gran # (Auto) 0.59 H Polychromasia 1+ Anisocytosis Present Tear Drop Cells Rouleaux 1+ SARS-CoV-2, RNA, NAAT NEGATIVE Blood Type B Positive Antibody Screen NEGATIVE 11/22/21 06:50 WBC 11.96 H RBC 4.71 Hgb 11.9 L Hct 36.4 MCV 77.3 L MCH 25.3 MCHC 32.7 RDW Std Deviation 58.0 H RDW Coeff of Noni 21.3 H Plt Count 148 MPV 11.0 Immature Gran % (Auto) 2.5 Neut % (Auto) 72.3 Lymph % (Auto) 12.6 Leake % (Auto) 10.8 Eos % (Auto) 1.0 Baso % (Auto) 0.8 Neut # (Auto) 8.65 H Lymph # (Auto) 1.51 Leake # (Auto) 1.29 H Eos # (Auto) 0.12 Baso # (Auto) 0.09 Immature Gran # (Auto) 0.30 H Polychromasia Anisocytosis Present Tear Drop Cells 1+ Tavia SARS-CoV-2, RNA, NAAT Blood Type Antibody Screen
[2021-11-22] MEDS ORDERED: bisacodyL 5 MG TABEC PO SCH (20:00)
[2021-11-23] MEDS ORDERED: bisacodyL 10 MG SUPP PR PRN
[2021-11-23] MEDS: IBUPROFEN 600 MG TAB PO PRN ×3 (02:28→11:24)
[2021-11-23] MEDS: oxyCODONE/ACETAMINOPHEN 5mg/325mg TAB PO PRN ×2 (02:29→06:43)
[2021-11-23 07:48] LABS: Hemoglobin 11.8 g/dl (12.0-16.0)
[2021-11-23] MEDS: PRENATAL VITAMIN 1 TAB PO SCH (08:00)
[2021-11-23] MEDS: DOCUSATE SODIUM 100 MG CAP PO SCH (08:00)
[2021-11-23] MEDS: FERROUS SULFATE 325 MG TAB PO SCH (08:00)
--- NOTE | 2021-11-23 10:56 | Obstetrical Progress Note ---
Date of Service November 23, 2021 Assessment & Plan (1) delivery delivered: POD #2 pt doing well d/c home with instructions Results & Data ([facility]) Vital Signs (Past 12 Hours) Vital Signs Temp Pulse Pulse Resp BP BP Pulse Ox 11/23/21 07:45 36.9 C 91 H 18 110/76 11/22/21 23:45 36.9 C 86 18 106/68 97 O2 Del Method 11/23/21 07:45 Room Air 11/22/21 23:45 Room Air
--- NOTE | 2021-11-23 14:17 | Discharge Summary (DS) ---
DATE OF ADMISSION: 11/21/2021. DATE OF DISCHARGE: 11/23/2021. CHIEF COMPLAINT: This is a 25-year-old G5, P4, who was admitted on 11/21/2021. The patient was preg nant at 36+ weeks and was in labor. She had had 4 prior C-sections. She therefore underwent a fifth section on 11/21/2021 to deliver a live . Surgical records and the pediatric informa tion is in the respective records. The patient did well and tolerated p.o. food and medications on p ostop day 1. This morning, she was up and ambulating without difficulty. She was once again continu ed to tolerate food and medications. PAST MEDICAL HISTORY: The patient has history of bipolar disorder. SOCIAL HISTORY: The patient denies tobacco, drug or alcohol use. PAST SURGICAL HISTORY: The patient has had 4 sections. FAMILY HISTORY: Noncontributory. PHYSICAL EXAMINATION: GENERAL: Well-developed, well-nourished white female in no acute distress. VITAL SIGNS: This morning show blood pressure of 110/76, pulse of 91, respiration of 18, temperature 36.9. HEART: S1 and S2, regular rhythm and rate. LUNGS: Clear to auscultation bilaterally. ABDOMEN: Nontender, nondistended, positive bowel sounds. Incision clean, dry and intact. EXTREMITIES: No cyanosis, clubbing or edema. LABORATORY DATA: This morning showed hemoglobin of 11.8, hematocrit of 36.0. CONDITION ON DISCHARGE: Stable. OPERATIONS: Repeat section x5. DISCHARGE DIAGNOSIS: Postoperative after repeat section x5. PLAN ON DISCHARGE: The patient is discharged home with instructions including medications, activity, diet, and followup appointment. Job ID: [id number]
== END 2021-11-23 12:20 | disposition home or self-care (01) | DRG 788 ==
LOC: OPB 19:13 → 4S1 19:16 → 4E2 11-21 08:09